=== PATIENT | male | born 1970 | race Caucasian/White ===

== ENCOUNTER 2020-09-27 16:28 | Emergency (ER) | payer SELFPAY ==
[~2020-09-27] VITALS: Ht 175.3 cm; Wt 84.1 kg
[2020-09-27] MEDS ORDERED: benzonatate 100mg capsule PO ONE (17:15)
[2020-09-27] MEDS ORDERED: ALBU8HFA PO (17:25)
[2020-09-27] MEDS ORDERED: BENZ-16 PO (17:25)
== END 2020-09-27 17:39 | disposition home or self-care (01) ==
LOC: ER 16:30
DX: R05 Cough (principal); R07.89 Other chest pain; R42 Dizziness and giddiness; R50.9 Fever, unspecified; R19.7 Diarrhea, unspecified; Z20.822 Contact with and (suspected) exposure to COVID-19; Z79.899 Other long term (current) drug therapy
CPT/HCPCS: 71045; 99283